=== PATIENT | female | born 1950 | race Caucasian/White ===

== ENCOUNTER → 2022-11-06 | Outpatient (CLI) | payer MEDICARE, OTHER ==
[~2022-11-06] MED LIST: ADVAIR 250/501 EA INH; ATORVASTATIN CA10 M1 PO; CITALOPRAM40 MG PO; HYDROCODONE-AC1 EAC1 PO; MELOXICAM15 MG PO; METOPROLOL TART50 M1 PO; MONTELUKAST SOD10 MG PO; PROVENTIL HFA6.7 GM INH; QUETIAPINE FUM100 M3 PO; TAMIFLU 75MG CA75 MG PO; VITAMIN D350 MCG PO
== END ==
LOC: WOUNDCARE 01:12
PROVIDERS: ATTEND Nurse Practitioner Family
DX: S01.81XA Laceration without foreign body of other part of head, initial encounter (principal); E11.9 Type 2 diabetes mellitus without complications; E78.5 Hyperlipidemia, unspecified; E78.00 Pure hypercholesterolemia, unspecified; I10 Essential (primary) hypertension; M16.0 Bilateral primary osteoarthritis of hip; J45.909 Unspecified asthma, uncomplicated; F31.9 Bipolar disorder, unspecified; Z48.02 Encounter for removal of sutures; W19.XXXA Unspecified fall, initial encounter; Y93.89 Activity, other specified; Y92.89 Other specified places as the place of occurrence of the external cause; Y99.8 Other external cause status

== ENCOUNTER → 2022-11-26 | Outpatient (CLI) | payer MEDICARE, OTHER | END | disposition home or self-care (01) | LOC: ORTHO 00:58 | PROVIDERS: ATTEND Orthopaedic Surgery | DX: S53.104A Unspecified dislocation of right ulnohumeral joint, initial encounter (principal); X58.XXXA Exposure to other specified factors, initial encounter; Y93.89 Activity, other specified; Y92.89 Other specified places as the place of occurrence of the external cause; Y99.8 Other external cause status ==

== ENCOUNTER → 2023-06-05 | Outpatient (CLI) | payer MEDICARE, OTHER | END | disposition home or self-care (01) | LOC: ORTHO 01:13 | PROVIDERS: ATTEND Orthopaedic Surgery | DX: M17.0 Bilateral primary osteoarthritis of knee (principal) ==